=== PATIENT | female | born 1950 | race Hispanic/Latino ===

== ENCOUNTER 2018-08-30 14:17 | Outpatient (CLI) | payer OTHER | END 2018-08-30 14:18 | disposition home or self-care (01) | LOC: C.RADH 14:17 | DX: R05 Cough (principal) ==

== ENCOUNTER 2018-09-20 14:09 | Outpatient (CLI) | payer OTHER | END 2018-09-20 14:10 | disposition home or self-care (01) | LOC: C.LAB 14:09 | DX: M81.0 Age-related osteoporosis without current pathological fracture (principal); E78.5 Hyperlipidemia, unspecified ==

== ENCOUNTER → 2018-09-28 | Outpatient (CLI) | payer OTHER | LOC: C.DEXAIC 12:50 | DX: M85.80 Other specified disorders of bone density and structure, unspecified site (principal); Z12.31 Encounter for screening mammogram for malignant neoplasm of breast ==